=== PATIENT | male | born 1950 | race Caucasian/White ===

== ENCOUNTER 2017-07-26 13:27 | Outpatient (CLI) ==
[2015-03-18 11:02] VITALS: BMI 30.2
--- NOTE | 2017-07-26 14:31 | DI ---
EXAM: PA and lateral views of the chest HISTORY: Cough/bronchitis COMPARISON: Chest x-ray 03/18/[address] chest 09/20/2015 FINDINGS: The cardiomediastinal silhouette is unremarkable with atherosclerotic disease of the aorta . There is no pneumothorax or pleural effusion. There is no consolidation, nodule or mass. The oss eous structures demonstrate degenerative disease of the spine. IMPRESSION: 1. No acute cardiopulmonary process or consolidation. 2. Mild scattered degenerative disease.
== END 2017-07-26 13:28 | disposition home or self-care (01) ==
LOC: RAD 13:27
PROVIDERS: ATTEND Family Medicine
DX: J40 Bronchitis, not specified as acute or chronic (principal)

== ENCOUNTER 2017-11-30 08:06 | Outpatient (POV) ==
[2015-03-18 11:02] VITALS: BMI 30.2
== END 2017-11-30 17:00 ==
LOC: OUTPT 08:06
PROVIDERS: ATTEND Otolaryngology
DX: H81.09 Meniere's disease, unspecified ear (principal)

== ENCOUNTER 2017-12-14 08:03 | Outpatient (POV) ==
[2015-03-18 11:02] VITALS: BMI 30.2
== END 2017-12-14 17:00 ==
LOC: OUTPT 08:03
PROVIDERS: ATTEND Otolaryngology
DX: R42 Dizziness and giddiness (principal)

== ENCOUNTER 2019-01-02 12:37 | Emergency (ER) ==
[2019-01-02 12:44] VITALS: BP 215/102; TEMP 97.9
--- NOTE | 2019-01-02 13:56 | CT ---
EXAM: CT of the head without contrast History: Headache and blurred vision. Technique: Multiplanar CT images through the head were obtained without the administration of IV con trast Findings: Mucosal thickening and fluid within the right sphenoid sinus. Mastoid air cells are clear in general. No acute calvarial abnormalities. Intracranially the ventricular and cisternal spaces are normal in size, shape and configuration for a patient of this age. No dominant mass or midline shift. No hydrocephalous. No acute intracranial hemorrhage or abnormal extraaxial fluid collections. Mild periventricular and subcortical white saritha er hypodensities. Atherosclerotic vascular calcifications. Impression: 1. No acute intracranial process. 2. Chronic small vessel ischemic disease. 3. Right sphenoid sinusitis
--- NOTE | 2019-01-02 14:50 | ED.PDOC ---
General ED Provider: Dr. GILA MARI Chief Complaint: Hypertension Stated Complaint: hypertension Time Seen by Physician: 12:40 Mode of Arrival: Walk-In Information Source: Patient Exam Limitations: No limitations Primary Care Provider: CHARITO GUZMÁN Nursing and Triage Documentation Reviewed and Agree: Yes Does patient meet sepsis criteria?: No System Inflammatory Response Syndrome: Not Applicable Sepsis Protocol: For patient's 13 years and over: Temp is 96.8 and below OR 101 and greater Pulse >90 BPM Resp >20/minute Acutely Altered Mental Status Are patient's symptoms suggestive of a new infection, such as: -Pneumonia -Skin, Soft Tissue -Endocarditis -UTI -Bone, Joint Infection -Implantable Device -Acute Abdominal Infection -Wound Infection -Meningitis -Blood Stream Catheter Infection -Unknown Cardiovascular Complaint Exam - Hypertension Complaint/Exam Onset/Duration: 12:30 Symptoms Are: Still present Timing: Intermittent Reported B/P Prior to Arrival: 200 Aggravating: Reports: None Alleviating: Reports: None Associated Signs and Symptoms: Denies: Chest pain, Vision changes, Anxiety, Recent stress, Headache, Numbness, Tingling, Weakness, Dizziness, Short of air, Swelling Related Surgical History: Reports: None Cardiac Risk Factors: Reports: Hypertension Recent Change in Medications: No A/V Nicking: No Papilledema Present: No JVD Present: No Carotid Bruit Present: No Femoral Pulses Bounding: No Differential Diagnoses: Hypertension, Renal Disease Quality Indicator For Non-Traumatic Chest Pain/Syncope: EKG Performed Review of Systems - Review Of Systems Constitutional: Reports: No symptoms Eyes: Reports: No symptoms Ears, Nose, Mouth, Throat: Reports: No symptoms Respiratory: Reports: No symptoms Cardiac: Reports: No symptoms GI: Reports: No symptoms : Reports: No symptoms Musculoskeletal: Reports: No symptoms Skin: Reports: No symptoms Neurological: Reports: No symptoms Endocrine: Reports: No symptoms Hematologic/Lymphatic: Reports: No symptoms All Other Systems: Reviewed and Negative Past Medical History - Past Medical History Previously Healthy: No Endocrine: Reports: None Cardiovascular: Reports: Hypertension Respiratory: Reports: None Hematological: Reports: None Gastrointestinal: Reports: GERD Genitourinary: Reports: None Neuro/Psych: Reports: None Musculoskeletal: Reports: None Cancer: Reports: None - Surgical History General Surgical History: Reports: None - Family History Family History: Reports: Unknown - Social History Smoking Status: Never smoker Hx Substance Use: No Alcohol Screening: Occasionally - Immunizations Tetanus Shot up to Date: Yes Physical Exam - Physical Exam Appearance: Well-appearing, No pain distress, Well-nourished Eyes: ASHLEIGH, EOMI, Conjunctiva clear ENT: Ears normal, Nose normal, Oropharynx normal Respiratory: Airway patent, Breath sounds clear, Breath sounds equal, Respirations nonlabored Cardiovascular: RRR, Pulses normal, No rub, No murmur GI/: Soft, Nontender, No masses, Bowel sounds normal, No Organomegaly Musculoskeletal: Normal strength, ROM intact, No edema, No calf tenderness Skin: Warm, Dry, Normal color Neurological: Sensation intact, Motor intact, Reflexes intact, Cranial nerves intact, Alert, Oriented Psychiatric: Affect appropriate, Mood appropriate Interpretation - Branch Controller Rate: Nato Rhythm: Sinus Ectopy: None Physician Notification - Case Discussed Physician Notified: pmd Time of Notification: 14:50 (transfered to [facility] due to decline in renal function) Critical Care Note - Critical Care Note Total Time (mins): 0 Course - Course Hematology/Chemistry: 01/02/19 13:25 01/02/19 13:25 Orders, Labs, Meds: Lab Review 01/02/19 01/02/19 01/02/19 13:25 13:25 13:25 WBC 7.23 RBC 4.21 L Hgb 12.6 L Hct 36.8 L MCV 87.4 MCH 29.9 MCHC 34.2 RDW Coeff of Carly 14.1 Plt Count 108 L Immature Gran % (Auto) 0.1 Neut % (Auto) 56.2 Lymph % (Auto) 24.3 Kimble % (Auto) 9.0 Eos % (Auto) 10.0 H Baso % (Auto) 0.4 Immature Gran # (Auto) 0.0 Neut # (Auto) 4.1 Lymph # (Auto) 1.8 Kimble # (Auto) 0.7 Eos # (Auto) 0.7 Baso # (Auto) 0.0 ESR 23 H Sodium 134.3 L Potassium 4.26 Chloride 100.4 Carbon Dioxide 23.8 Anion Gap 14.36 BUN 37.0 H Creatinine 3.00 H Estimated GFR (MDRD) 21.00 BUN/Creatinine Ratio 12.33 Glucose 82.7 Calcium 9.25 Total Bilirubin 0.70 AST 22.7 ALT 14.3 Alkaline Phosphatase 88.7 Total Protein 7.79 Albumin 4.61 Globulin 3.18 Albumin/Globulin Ratio 1.44 Orders Category Date Time Status EKG-(ED ONLY) Stat CARDIO 01/02/19 14:32 Ordered TRANSFER TO OUTSIDE FACILITY .TO [facility] 01/02/19 14:32 Active ([facility] [place]) WRITE TRANSFER/SBAR NOTE ONCE CARE 01/02/19 14:32 Active DISCHARGE ASSESSMENT ONCE DISCHARGE 01/02/19 14:32 Active WRITE DISCHARGE NOTE ONCE DISCHARGE 01/02/19 14:32 Active CBC W/ AUTO DIFF Stat LAB 01/02/19 13:25 Completed COMPREHENSIVE METABOLIC PANEL Stat LAB 01/02/19 13:25 Completed ESR Stat LAB 01/02/19 13:[address] HEAD W/O CONTRAST Stat RADS 01/02/19 13:14 Completed Vital Signs: Temp Pulse Resp BP Pulse Ox 01/02/19 12:37 97.9 F 57 L 20 215/102 H 98 TOSHIA Risk Score TOSHIA Risk Score: Risk Score Odds of by 30D 0 0.1 (0.1-0.2) 1 0.3 (0.2-0.3) 2 0.4 (0.3-0.5) 3 0.7 (0.6-0.9) 4 1.2 (1.0-1.5) 5 2.2 (1.9-2.6) 6 3.0 (2.5-3.6) 7 4.8 (3.8-6.1) Departure - Departure Time of Disposition: 14:50 Disposition: TSF SHORT-TRM HOSP Discharge Problem: Uncontrolled hypertension Instructions: Hypertension (ED) Condition: Good Pt referred to PMD for follow-up: Yes IPMP verified?: No Additional Instructions: Please call your Family Physician as soon as possible to schedule a follow-up appointment. Allergies/Adverse Reactions: Allergies No Known Allergies Allergy (Verified 01/02/19 12:52) Home Medications: Ambulatory Orders Meclizine HCl [Antivert] 25 mg PO DAILY PRN 03/18/15 Metoprolol Tartrate 100 mg PO DAILY 03/18/15 Omeprazole 20 mg pe PO DAILY 03/18/15 Allopurinol [Zyloprim] 300 mg PO DAILY 01/02/19 Aspirin 81 mg PO DAILY 01/02/19 Clonazepam [Klonopin] 0.5 mg PO BID 01/02/19 Levothyroxine Sodium [Synthroid] 100 mcg PO QDAC 01/02/19 Losartan/Hydrochlorothiazide [Losartan-Hctz 100-25 mg Tab] 1 each PO BID Oxycodone-Acetaminophen 5-325 [Percocet 5-325] 1 tab PO Q4H 01/02/19 Disposition Discussed With: Patient
== END 2019-01-02 15:10 | disposition short-term general hospital (02) ==
LOC: ED 12:37
DX: I16.0 Hypertensive urgency (principal)
CPT/HCPCS: 36415; 80053; 85025; 85651; 93005; 93010; 99285